=== PATIENT | female | born 1955 | race Caucasian/White ===

== ENCOUNTER 2021-07-26 10:39 | Outpatient (CLI) | payer OTHER, SELFPAY ==
--- NOTE | 2021-07-26 11:00 | ECG_ITS ---
Measurements Intervals [place] Rate: 101 P: 40 UT: 165 QRS: 13 QRSD: 83 T: 0 QT: 333 QTc: 432 Interpretive Statements SINUS TACHYCARDIA VENTRICULAR PREMATURE COMPLEX LOW QRS VOLTAGE IN PRECORDIAL LEADS BORDERLINE R WAVE PROGRESSION, ANTERIOR LEADS MINIMAL Q WAVES- INFERIOR LEADS BORDERLINE T WAVE ABNORMALITY- ANTEROLAT/INF LEADS BASELINE ARTIFACT- I, II, III, AVR, AVL, AVF BORDERLINE ECG Electronically Signed On 07-26-2021 11:55:03 CDT by Shorty Garcias D.O.
== END 2021-07-26 10:40 | disposition home or self-care (01) ==
PROVIDERS: Visit Provider Obstetrics & Gynecology
DX: N39.3 Stress incontinence (female) (male) (principal); Z87.891 Personal history of nicotine dependence; Z01.818 Encounter for other preprocedural examination; R94.31 Abnormal electrocardiogram [ECG] [EKG]
CPT/HCPCS: 36415; 86850; 86900; 86901; 93005

== ENCOUNTER 2021-07-28 01:02 | Day surgery (SDC) | payer OTHER, SELFPAY ==
--- NOTE | 2021-07-25 13:18 | P.HP_ITS ---
H&P: HPI History of Present Illness Date/Time: 07/25/21 13:18 this is a [age]-year-old status post hysterectomy was admitted for tension- free vaginal tape. She complains of loss of urine with coughing laughing sneezing. He close have not been helpful. Risks and benefits were reviewed including but not exclusive of , aspiration pneumonia, bleeding, transfusion, perforation injury to bowel, bladder, ureters, or other internal organs with need for open laparotomy. The risk of mesh reviewed as well. She had all questions answered. She asked to proceed Chief Complaint: stress urinary incontinence Review of Systems Review of Systems: All systems reviewed & are unremarkable except as noted in HPI and below Meds Home Medications and Allergies Allergies Allergy/AdvReac Type Severity Reaction Status Date / Time acetaminophen Allergy Mild LIGHTHEADED, Unverified 03/16/09 12:19 HOT hydrocodone Allergy Mild LIGHTHEADED, Unverified 03/16/09 12:19 HOT Exam Const: General: no acute distress Eyes: General: appearance normal, both eyes and all related structures Neck: Neck: supple and no JVD Thyroid: thyroid normal Resp: Effort & Inspection: normal respiratory effort Auscultation: clear to auscultation bilaterally Cardio: Rate: regular rate Rhythm: regular rhythm GI: Inspection: non-distended GI Palp: Yes Soft to palpation, No Tenderness to palpation present (GI) and No Guarding due to palpation present (GI) Auscultation: normal bowel sounds : External Female Exam: normal external appearance Speculum Exam - Vagina: normal appearance of the vagina Speculum Exam - Cervix: Cervix absent Bimanual exam- vagina & uterus: normal palpation and other ( urethra overactive with Valsalva maneuver) Bimanual Exam- Adnexa, other: normal adnexae Skin: General skin exam: no rashes or lesions noted Extrem: General: normal to inspection and no edema Psych: Mental Status: mental status grossly normal Affect: normal affect Assessment and Plan Additional Plan impression: Stress urinary incontinence Plan: Tension-free vaginal tape
[2021-07-25 14:50] VITALS: BMI 36.1
--- NOTE | 2021-07-27 13:19 | WPDANESEPPF ---
Anes - Initial Pre Proc Eval Procedure: Operation Date: 07/28/21 10:30 Proposed Procedures p Tension Free Vaginal Taping - Jake Nolan MD Date/Time: 07/27/21 13:19 Surgeon: Jake Nolan MD Pre Op Diagnosis: JOYCE Patient Data Age: 66 Gender: F Height: 1.52 m Weight: 84 kg Allergies Allergy/AdvReac Type Severity Reaction Status Date / Time hydrocodone AdvReac Mild LIGHTHEADED, Verified 07/28/21 08:32 HOT Home Medications Medication Instructions Recorded Confirmed Type amlodipine 10 mg PO QAM 07/25/21 07/28/21 History ascorbic acid (vitamin C) 1 g PO DAILY 07/25/21 07/28/21 History aspirin [Aspir-81] 81 mg PO DAILY 07/25/21 07/28/21 History conjugated estrogens [Premarin] 0.625 mg PO DAILY 07/25/21 07/28/21 History levetiracetam [Keppra] 500 mg PO BID 07/25/21 07/28/21 History levocetirizine [Xyzal] 5 mg PO DAILY 07/25/21 07/28/21 History lorazepam 0.5 mg PO QAM 07/25/21 07/28/21 History losartan 100 mg PO QAM 07/25/21 07/28/21 History montelukast [Singulair] 10 mg PO HS 07/25/21 07/28/21 History omeprazole 40 mg PO HS 07/25/21 07/28/21 History simvastatin 20 mg PO HS 07/25/21 07/28/21 History hydrocodone-acetaminophen 1 tablet PO Q4H PRN #30 tablet 07/28/21 Rx Patient hx anesthesia problems: none Family hx anesthesia problems: none PMFSH Past Medical History Medical History (Updated 07/28/21 @ 07:19 by Jake Nolan MD) Anxiety GERD (gastroesophageal reflux disease) Hyperlipidemia Hypertension Seizure 2010, none since. Surgical History Surgical History (Updated 07/27/21 @ 13:20 by Serg Valerio DO) History of hysterectomy Social History Social History Smoking packs per day: 1 Smoking cigarettes per day: 20.0 Years smoked: 25 Smoking pack-years: 25.00 Smoking status: Former smoker Tobacco type: cigarettes Smoking end date: 06/01/96 Alcohol intake: never Living arrangements: with family Additional living arrangements comments: [facility] Spiritual care concerns: No Anes - Eval Final PreProcedure Day of Procedure 07/27/21 13:19 Patient weight: obese Heart: regular rate and rhythm Lungs: clear to auscultation and normal air movement Airway: Mallampati scale class II Neurological: alert and oriented Last oral intake: >/= 8 hours ASA classification: III Emergent: no Anesthetic plan: proceed Anesthesia type and monitoring: general LMA and standard monitoring Informed Consent: The patient's anesthetic plan and its attendant risks and benefits were discussed with the patient/family/POA. Questions were solicited and answers provided to the satisfaction of the patient/family/POA.
[2021-07-28] VITALS (10 sets, daily range): BP systolic 100–136; BP diastolic 61–91; PULSE 68–82; RESP 12–20; TEMP 36.1–36.3; O2SAT 94–100
--- NOTE | 2021-07-28 07:18 | WPDHPUPDATE1 ---
History and Physical Update Update Date/Time: 07/28/21 07:18 History and Physical has been reviewed, including an updated exam of the patient. There are NO changes in the patient's condition. Risks, benefits, and alternatives have been discussed and questions answered. Patient agrees to proceed with procedure.
--- NOTE | 2021-07-28 09:00 | SUR.PREOP ---
patient updated on possible 1.5 hour delay
[2021-07-28] MEDS: LACTATED RINGERS 1,000 ML 30 ML IV CONT (09:58)
[2021-07-28] MEDS: SCOPOLAMINE 1.5 MG PATCH TRANSDERM (10:07)
[2021-07-28] MEDS: FAMOTIDINE 20 MG/2 ML VIAL IV PUSH (10:07)
--- NOTE | 2021-07-28 10:10 | SUR.PREOP ---
patient updated that delay is approximately one hour for start time of approx 1130
[2021-07-28] MEDS: ceFAZolin 2 GM/D5W 50 ML 2 GM/50 ML BAG IVPB (11:30)
--- NOTE | 2021-07-28 12:12 | W.PM.PROC2 ---
Procedure Note - Detailed Date of Procedure 07/28/21 Pre-op Diagnosis JOYCE Post-op Diagnosis same Procedure Performed Tension-free vaginal tape/cystoscopy Surgeon Jake Nolan MD Anesthesia general Indications [age]-year-old female status post hysterectomy with stress urinary incontinence who failed conservative methods Description of Procedure The patient was prepped draped in normal sterile fashion placed in dorsal lithotomy position. Under excellent general endotracheal anesthesia weighted speculum placed in posterior fornix vagina. A 18 [place] catheter was placed in the bladder and drained of clear urine. A mid suburethral incision was made and the lateral bladder space entered by blunt dissection. The urethral guide was placed and the bladder and the urethra retracted laterally the left retropubic bladder space entered at45? upto30? through the skin and fascia. The urethra was retracted the opposite direction this was repeated on the contralateral side. The catheter was then removed and the 70degree cystoscope was inserted no injury seen. The TVT device was pulled up to the tightness of an open PI clamped. The plastic was cut the mesh was cut at the suprapubic area the vagina closed with running 0 chromic. Blood loss was estimated at5cc and the catheter was all sponge, needle, instrument counts were correct there were no immediate complications Implants TVT device Estimated Blood Loss 25 Drains No Packing No Pathology none sent Complications No immediate complications Condition stable Disposition PACU
[2021-07-28] MEDS: fentaNYL CITRATE INJ (*CRX) 100 MCG/2 ML VIAL 25 MCG IV PUSH ×4 (12:44→14:17)
[2021-07-28] MEDS: oxyCODONE HCL (*CRX) 5 MG TAB IR PO (13:30)
== END 2021-07-28 14:52 | disposition home or self-care (01) ==
PROVIDERS: Visit Provider Obstetrics & Gynecology
PROC: 0TSD0ZZ Reposition Urethra, Open Approach (ICD-10-PCS; CPT 57288; principal; 2021-07-28 10:30)
DX: N39.3 Stress incontinence (female) (male) (principal); Z79.82 Long term (current) use of aspirin; F41.9 Anxiety disorder, unspecified; K21.9 Gastro-esophageal reflux disease without esophagitis; I10 Essential (primary) hypertension; E78.5 Hyperlipidemia, unspecified; Z87.891 Personal history of nicotine dependence; E66.9 Obesity, unspecified; Z68.36 Body mass index [BMI] 36.0-36.9, adult
CPT/HCPCS: 57288; 36415; 86850; 86900; 86901; 93005; A9270; C1771; J0690; J1100; J2250; J2405; J2704; J3010; J7030; J7120